=== PATIENT | female | born 1985 | race Caucasian/White ===

== ENCOUNTER 2020-11-30 10:39 | Day surgery (SDC) | payer OTHER ==
[~2020-11-30] VITALS: Ht 160 cm; Wt 94.1 kg
[2020-11-30] VITALS (7 sets, daily range): BP systolic 97–153; BP diastolic 48–95; PULSE 69–97; TEMP 97.4–97.5
[~2020-11-30 10:39] MED LIST: CLEOCIN HC150 MG/CAP PO; CLINDAMYCIN HC300 MG PO; FLEXERIL10 MG PO; IBU-8800 MG PO; IBUPROFEN600 MG PO; LORTAB 5/500 501 TAB PO; LORTAB 7.5/5001 TAB PO; MACROBID100 MG PO; MORENA; MOTRIN JUNIOR100 MG PO; MULTIPLE VITAMI1 CAP PO; NAPROSYN PO; NO HOME MEDICATIONS; NORCO 325 MG-51 TAB PO; NORCO 325 MG-7.1 TAB PO; PERCOCET 5/321 UDTAB PO; PRENATAL VITAMI1 TA5 PO; ZITHROMAX 250M250 MG PO; birth control pill
[2020-11-30] MEDS ORDERED: NEXIUM 24HR20 M1 PO (11:05)
[2020-11-30] MEDS ORDERED: NORCO 325 MG-51 TAB PO (14:21)
[2020-11-30] MEDS ORDERED: MOTRIN 600600 MG/TAB PO (14:22)
--- NOTE | 2020-11-30 14:35 | NUR ---
Returns to room 6 per cart accompanied by Mikala ANDERSON and is awake and alert. Temp 97.5 and room air sats 96% on 2L per nasal cannula. Incisional sites x4 on abdomen covered with exofin and wound edges well approixmated. IV fluids infusing and site is free of redness. Siderails up x2 and call light in reach. Complains of pain at 7/10 and medicated with Fentanyl 25mcg by Mikala ANDERSON. Allowed to rest.
--- NOTE | 2020-11-30 14:50 | NUR ---
Talking on cell phone. No further complaints of pain.
--- NOTE | 2020-11-30 15:05 | NUR ---
Resting and spouse in room.
--- NOTE | 2020-11-30 15:20 | NUR ---
Oxygen removed and sats 96%. Sipping on pepsi and eating pudding.
--- NOTE | 2020-11-30 15:29 | NUR ---
Medicated with [place] 5mg one tab for pain at 7/10. Talking and laughing with spouse.
--- NOTE | 2020-11-30 15:35 | NUR ---
Assisted up to the bathroom and voids. Gait steady. Denies nausea with movement. Voids and returns to room. IV discontinued and site is free of redness and swelling. Patient dresses self.
--- NOTE | 2020-11-30 16:03 | NUR ---
Dismissal instructions given and voices understanding of these. Provided follow up appointment date and time.
--- NOTE | 2020-11-30 16:07 | NUR ---
Patient dismissed to home driven by spouse and taken to the front door per wheelchair and assisted into vehicle by this RN with instructions in hand.
== END 2020-11-30 16:07 | disposition home or self-care (01) ==
LOC: SDCO 10:39
DX: K80.10 Calculus of gallbladder with chronic cholecystitis without obstruction (principal); K21.9 Gastro-esophageal reflux disease without esophagitis; F17.210 Nicotine dependence, cigarettes, uncomplicated; E66.9 Obesity, unspecified; Z68.35 Body mass index [BMI] 35.0-35.9, adult; Z20.822 Contact with and (suspected) exposure to COVID-19; Z80.8 Family history of malignant neoplasm of other organs or systems; Z79.899 Other long term (current) drug therapy
CPT/HCPCS: J0690; J1100; J2405; J2704; J3010; J7120; Q9967

== ENCOUNTER → 2021-09-13 | Outpatient (CLI) | payer SELFPAY ==
[~2021-09-13] MED LIST changes: +MOTRIN 600600 MG/TAB PO; +NEXIUM 24HR20 M1 PO
== END ==
LOC: COL.RAD 12:39
DX: R10.2 Pelvic and perineal pain (principal); Z97.5 Presence of (intrauterine) contraceptive device

== ENCOUNTER → 2021-10-25 | Outpatient (CLI) | payer OTHER | LOC: MC.RAD 13:53 | DX: N63.20 Unspecified lump in the left breast, unspecified quadrant (principal) ==

== ENCOUNTER 2021-11-05 23:32 | Emergency (ER) | payer BC ==
[~2021-11-05] VITALS: Ht 157.5 cm; Wt 81.8 kg
[2021-11-05 23:55] LABS: COLLECTION METHOD CLEAN CATCH
[2021-11-06 00:03] LABS: PH 6 (5-8); SQUAMOUS EPITHELIAL None Seen /hpf (0-10); URINE APPEARANCE Clear (CLEAR/HAZY); URINE BACTERIA None Seen /hpf (NONE SEEN); URINE BILIRUBIN Negative (NEGATIVE); URINE BLOOD Negative (NEGATIVE); URINE COLOR Straw (YELLOW); URINE GLUCOSE Negative (NEGATIVE); URINE KETONE Negative (NEGATIVE); URINE LEUKOCYTE ESTERASE Negative (NEGATIVE); URINE NITRATE Negative (NEGATIVE); URINE PROTEIN(semi-quant) Negative (NEGATIVE); URINE RBC 0-2 /hpf (0-2); URINE UROBILINOGEN Negative (NEGATIVE)
[2021-11-06 00:09] LABS: TRICYCLIC ANTIDEPRESS URINE NEGATIVE
[2021-11-06 00:17] LABS: BASO # 0.1 K/mm3 (0.0-0.2); BASO % 0.9 % (0.0-2.0); EOS % 0.6 % (0.0-4.0); GRAN # 2.9 K/mm3 (1.4-6.5); GRAN % 42.1 % (42.2-75.2); HEMATOCRIT 41.5 % (37.0-47.0); HEMOGLOBIN 14.6 g/dl (12.5-16.0); LYMPH # 3.4 K/mm3 (1.2-3.4); LYMPH % 48.9 % (20.0-51.0); MEAN CELL VOLUME 94 fl (80.0-100.0); MEAN CORPUSCULAR HEMOGLOBIN 33 pg (27-31); MEAN CORPUSCULAR HGB CONC 35 g/dl (33.0-37.0); MONO # 0.5 K/mm3 (0.1-0.6); MONO % 7.4 % (1.7-9.3); PLATELET COUNT 171 K/mm3 (130-400); RED BLOOD COUNT 4.43 M/mm3 (4.10-5.30)
[2021-11-06 00:31] LABS: ALANINE AMINOTRANSFERASE 58 U/L (0-55); ALKALINE PHOSPHATASE 50 U/L (40-150); ANION GAP 15 mmol/L (7-16); AST,SGOT 89 U/L (5-34); BILIRUBIN,TOTAL 0.5 mg/dL (0.2-1.2); BLOOD UREA NITROGEN 6 mg/dL (7-19); CALCIUM 8.7 mg/dL (8.4-10.2); CARBON DIOXIDE 22 mmol/L (22-29); CHLORIDE 101 mmol/L (98-107); CREATININE, serum 0.64 mg/dL (0.57-1.11); GLUCOSE 97 mg/dL (70-99); POTASSIUM 3.9 mmol/L (3.5-4.5); SODIUM 138 mmol/L (136-145); TOTAL PROTEIN 7.2 gm/dL (6.2-8.1)
[2021-11-06 00:32] LABS: ACETAMINOPHEN < 1.0 ug/mL (10-30); ALCOHOL(ethanol),MEDICAL 362 mg/dL (0-10); SALICYLATE < 5.0 mg/dL (15.0-30.0)
[2021-11-06 07:05] VITALS: TEMP 98.3
[2021-11-06 13:49] VITALS: BP 115/75; PULSE 80
== END 2021-11-06 13:55 | disposition home or self-care (01) ==
LOC: COL.ER 23:32
PROVIDERS: Family Medicine
DX: F32.A Depression, unspecified (principal); F10.20 Alcohol dependence, uncomplicated; F17.210 Nicotine dependence, cigarettes, uncomplicated; Y90.8 Blood alcohol level of 240 mg/100 ml or more

== ENCOUNTER 2022-11-29 17:58 | Emergency (ER) | payer OTHER ==
[~2022-11-29] VITALS: Ht 157.5 cm; Wt 100.0 kg
[2022-11-29 18:03] VITALS: TEMP 98.6
[2022-11-29 19:30] VITALS: BP 101/68; PULSE 75
== END 2022-11-29 19:30 | disposition home or self-care (01) ==
LOC: COL.ER 17:58
DX: M54.2 Cervicalgia (principal); M25.532 Pain in left wrist; M54.6 Pain in thoracic spine; F17.200 Nicotine dependence, unspecified, uncomplicated; V48.5XXA Car driver injured in noncollision transport accident in traffic accident, initial encounter; Y92.410 Unspecified street and highway as the place of occurrence of the external cause

== ENCOUNTER 2024-02-29 05:39 | Emergency (ER) | payer MEDICAID ==
[~2024-02-29] VITALS: Ht 160 cm; Wt 122.7 kg
[2024-02-29 05:42] VITALS: TEMP 97.1
[2024-02-29 06:31] VITALS: BP 125/57; PULSE 95
== END 2024-02-29 06:40 | disposition home or self-care (01) ==
LOC: COL.ER 05:39
DX: S51.812A Laceration without foreign body of left forearm, initial encounter (principal); W25.XXXA Contact with sharp glass, initial encounter

== ENCOUNTER → 2024-06-17 | Outpatient (CLI) | payer MEDICAID ==
[~2024-06-17] MED LIST changes: +Iohexol 300 - 10 ML VIAL ONE; +Lidocaine PF 2% (20 MG/ML) 2 ML VIAL ONE
== END ==
LOC: MHCPAIN 11:20
DX: M54.16 Radiculopathy, lumbar region (principal); M54.50 Low back pain, unspecified
CPT/HCPCS: J1100; Q9967

== ENCOUNTER → 2024-08-16 | Outpatient (CLI) | payer MEDICAID | LOC: MHCPAIN 09:09 | DX: M54.17 Radiculopathy, lumbosacral region (principal); M54.16 Radiculopathy, lumbar region | CPT/HCPCS: J1100; Q9967 ==